=== PATIENT | female | born 1945 | race Caucasian/White ===

== ENCOUNTER → 2016-12-25 | Outpatient (CLI) | payer MEDICARE, BC ==
[~2016-12-25] MED LIST: COUMADIN,JANTO2.5 MG PO; Metamucil Packet PO; Miralax, Glycolax PO; TRILIPIX45 MG PO; Vagifem VG; Vicodin,Norco 5/325 PO
== END | disposition home or self-care (01) ==
LOC: CDC 11:20
DX: Z01.810 Encounter for preprocedural cardiovascular examination (principal); M75.121 Complete rotator cuff tear or rupture of right shoulder, not specified as traumatic; M25.511 Pain in right shoulder
CPT/HCPCS: 93000

== ENCOUNTER 2017-01-09 05:11 | Day surgery (SDC) | payer OTHER, BC ==
[~2017-01-09] VITALS: Ht 149.9 cm; Wt 53.5 kg
[~2017-01-09 05:11] MED LIST changes: +CALTRATE 600 +1 EAC1 PO; +CENTRUM SILVER1 EAC3 PO; +LO-DOSE ASPIRIN81 M2 PO; +METAMUCIL POWD798 GM PO; +ONDANSETRON HCL4 MG PO; +PERCOCET 5/31 TABLET PO; +VAGIFEM10 MCG VG
[2017-01-09 06:01] VITALS: BP 163/70
[2017-01-09 10:59] VITALS: BP 137/69
[2017-01-09 14:01] VITALS: BP 133/74
== END 2017-01-09 14:28 | disposition home or self-care (01) ==
LOC: SDC 05:11
DX: M75.121 Complete rotator cuff tear or rupture of right shoulder, not specified as traumatic (principal); Z79.82 Long term (current) use of aspirin; M19.90 Unspecified osteoarthritis, unspecified site; Z87.891 Personal history of nicotine dependence
CPT/HCPCS: C1713; J0131; J0171; J0690; J1100; J2250; J2405; J2795; J3010

== ENCOUNTER 2017-06-04 14:41 | Inpatient (IN) | payer OTHER, BC ==
[~2017-06-04] VITALS: Ht 149.9 cm; Wt 50.7 kg
[~2017-06-04 14:41] MED LIST changes: +DURICEF500 MG PO; +MOTRIN IB200 MG PO
[2017-06-04 15:33] VITALS: BP 144/68
[2017-06-04 22:30] VITALS: BP 111/67
[2017-06-05 03:42] VITALS: BP 109/63
[2017-06-05 07:15] LABS: GFR ESTIMATE (CALCULATED) > 59 mL/min/; UREA NITROGEN (BUN) 8 mg/dL (9-23)
[2017-06-05 08:15] VITALS: BP 113/60
[2017-06-06 00:30] VITALS: BP 129/70
[2017-06-06 07:26] VITALS: BP 102/62
[2017-06-06 16:29] VITALS: BP 131/73
[2017-06-07 00:04] VITALS: BP 126/72
[2017-06-07 07:15] LABS: GFR ESTIMATE (CALCULATED) > 59 mL/min/
[2017-06-07 07:20] VITALS: BP 110/93
[2017-06-07 16:11] VITALS: BP 122/67
[2017-06-07 23:44] VITALS: BP 134/70
[2017-06-08 06:57] LABS: GFR ESTIMATE (CALCULATED) > 59 mL/min/
[2017-06-08 08:30] VITALS: BP 127/57
[2017-06-08 15:44] VITALS: BP 121/69
[2017-06-08] MEDS ORDERED: HYDROCODON-ACE1 EAC7 PO (16:54)
[2017-06-09] MEDS ORDERED: TYLENOL REGULA325 MG PO (09:24)
== END 2017-06-08 18:36 | disposition home or self-care (01) | DRG 511 ==
LOC: SDC 14:41 → 2SOUTH 21:37 → 3EAST 21:37
PROVIDERS: Orthopaedic Surgery Hand Surgery
PROC: 0RB Upper Joints, Excision (ICD-10-PCS; principal; 2017-06-04)
PROC: 0LQ14ZZ Repair Right Shoulder Tendon, Percutaneous Endoscopic Approach (ICD-10-PCS; 2017-06-04)
DX: M75.121 Complete rotator cuff tear or rupture of right shoulder, not specified as traumatic (principal); M00.9 Pyogenic arthritis, unspecified; M19.011 Primary osteoarthritis, right shoulder; M65.9 Synovitis and tenosynovitis, unspecified; Z96.652 Presence of left artificial knee joint
CPT/HCPCS: 80202; 82565; 84520; 86140; 87070; 87075; 87205; J0131; J0171; J0295; J0696; J1170; J1885; J2405; J2765; J3010; J3370; J7050; J7120; S0020

== ENCOUNTER 2017-07-04 07:37 | Emergency (ER) | payer OTHER, BC ==
[~2017-07-04] VITALS: Ht 149.9 cm; Wt 50.9 kg
[~2017-07-04 07:37] MED LIST changes: +HYDROCODON-ACE1 EAC7 PO; +PROBIOTIC1 EAC4 PO; +TYLENOL REGULA325 MG PO
[2017-07-04 08:27] LABS: BASOPHIL COUNT 0.1 K/uL (0-0.1); EOSINOPHIL (%) 1.6 % (0-5); EOSINOPHIL COUNT 0.1 K/uL (0-0.3); HEMATOCRIT 32.5 % (36.0-46.0); IMMATURE GRANULOCYTE (%) 0.3 % (0.0-0.7); INSTRUMENT ABS NEUTROPHIL CT 5.7 K/uL; LYMPHOCYTE COUNT 0.4 K/uL (1.0-2.8); MCH 29.7 PG (29.0-34.0); MCHC 33.8 G/DL (30.0-36.0); MCV 87.8 FL (83-99); MEAN PLAT.VOLUME 8.4 uM^3 (9.5-12.4); MONOCYTE (%) 9.4 % (3-12); MONOCYTE COUNT 0.7 K/uL (0-0.8); NEUTROPHIL (%) 82.8 % (45-76); NEUTROPHIL COUNT 5.7 K/uL (1.8-6.4); PLATELET COUNT 244 K/uL (156-360); RBC DIS.WIDTH-CV 12.8 % (11.8-14.6); RBC DIS.WIDTH-SD 41.6 % (39-53); WHITE BLOOD COUNT 6.9 K/uL (4.1-10.2)
[2017-07-04 08:42] LABS: CHLORIDE 100 mEq/L (99-109); POTASSIUM 3.9 mEq/L (3.7-5.4); SODIUM 135 mEq/L (136-147)
[2017-07-04 08:44] LABS: GLUCOSE 95 mg/dL (70-99)
[2017-07-04 08:45] LABS: ANION GAP 10 MEQ/L (2-14)
[2017-07-04 08:46] LABS: TOTAL BILIRUBIN 0.3 mg/dL (0.0-1.0)
[2017-07-04 08:47] LABS: ALKALINE PHOSPHATASE 58 IU/L (3-129)
[2017-07-04 08:48] LABS: GFR ESTIMATE (CALCULATED) > 59 mL/min/
[2017-07-04 08:49] LABS: UREA NITROGEN (BUN) 14 mg/dL (9-23)
[2017-07-04 09:43] LABS: ADD MIUA? NO; BILIRUBIN NEGATIVE; BLOOD NEGATIVE; COLOR STRAW ((YELLOW)); GLUCOSE (STRIP) NEGATIVE; KETONES NEGATIVE; LEUKOCYTES NEGATIVE; NITRITE NEGATIVE; PROTEIN (STRIP) NEGATIVE; SPECIFIC GRAVITY 1.006 (1.000-1.030); UROBILINOGEN 0.2 MG/DL (0.2-1.0)
[2017-07-04] MEDS ORDERED: ANTIVERT25 MG PO (12:54)
[2017-07-04 13:02] VITALS: BP 118/79
== END 2017-07-04 13:09 | disposition home or self-care (01) ==
LOC: EME 07:37
PROVIDERS: Emergency Medicine
DX: R42 Dizziness and giddiness (principal); M86.8X1 Other osteomyelitis, shoulder; H93.19 Tinnitus, unspecified ear; R11.0 Nausea; R53.1 Weakness; M79.601 Pain in right arm; Z79.82 Long term (current) use of aspirin; Z87.891 Personal history of nicotine dependence
CPT/HCPCS: 71010; 73090; 73110; 80053; 81003; 85025; 93005; 99281; 99285; J0696; J2405; J7030; J7050